=== PATIENT | male | born 1980 | race Caucasian/White ===

== ENCOUNTER → 2018-11-02 05:28 | Outpatient (CLI) | payer OTHER | END | disposition home or self-care (01) | LOC: D.OPS 05:28 → EDSTATUS 08:00 → D.OPS 08:00 | PROVIDERS: ATTEND Surgery | DX: Z87.19 Personal history of other diseases of the digestive system (principal); Z53.9 Procedure and treatment not carried out, unspecified reason; Z01.812 Encounter for preprocedural laboratory examination ==

== ENCOUNTER 2018-11-23 07:33 | Day surgery (SDC) | payer OTHER ==
[~2018-11-23] VITALS: Ht 175.3 cm; Wt 76.8 kg
[2018-11-23] MEDS ORDERED: ASACOL HD800 MG PO (08:08)
[2018-11-23 08:17] VITALS: BP 127/77; Ht 175.3 cm; Wt 76.8 kg
[2018-11-23 08:46] LABS: BASOPHILS 0.4 % (0-2); EOSINOPHILS 5.5 % (0-7); HEMATOCRIT 43.2 % (42.0-54.0); HEMOGLOBIN 15.1 g/dL (13.5-17.5); IMMATURE GRANULOCYTES 0.3 % (0-5); LYMPHOCYTES 27.6 % (15-50); MCH 31.1 pg (26.0-34.0); MCV 89.1 fL (80.0-100.0); MEAN PLATELET VOLUME 12.3 fL (7.4-10.4); MONOCYTES 8.9 % (2-11); NEUTROPHILS 57.3 % (40-80); PLATELET COUNT 148 10x3/uL (130-400); RBC 4.85 10x6/uL (4.20-6.10); RDW 12.7 % (11.5-14.5); WBC 7.1 10x3/uL (4.8-10.8)
[2018-11-23 09:01] LABS: CALC OSMOLALITY 280 mosm/kg (275-300); CALCIUM 9.2 mg/dL (8.5-10.1); CARBON DIOXIDE 28.2 mmol/L (21.0-32.0); CHLORIDE - SERUM 106 mmol/L (98-107); GLUCOSE 93 mg/dL (74-106); POTASSIUM - SERUM 4.1 mmol/L (3.5-5.1); SODIUM 141 mmol/L (136-145); UREA NITROGEN 12 mg/dL (7-18); eGFR NON AFRICAN AMERICAN 88 mL/min (90-120)
--- NOTE | 2018-11-24 18:45 | OP ---
PATIENT NAME: OANH GONZALEZ MEDICAL RECORD: [id number] :76 LOCATION:D[facility] ADMISSION DATE: SURGEON: CATALINA HAYES MD DATE OF OPERATION: 11/23/2018 PREOPERATIVE DIAGNOSES: Known Crohn disease with suprapubic and left lower quadrant abdominal pain. POSTOPERATIVE DIAGNOSES: Known Crohn disease with suprapubic and left lower quadrant abdominal pain with normal-appearing ilium, minimal proctitis that was a little worse in the perianal area. PROCEDURES: 1. Total colonoscopy to cecum. 2. Random colon and rectal biopsies. 3. Ileoscopy with biopsy. SURGEON: Catalina Hayes MD DRY CURER: None. BLOOD LOSS: Minimal. ANESTHESIA: IV sedation. COMPLICATIONS: None. The risks, possible complications and alternatives to the procedure were explained to the patient. He elects to proceed. ENDOSCOPIC COURSE: The patient was conveyed to endoscopy suite electively on 11/23/2018. IV sedation was induced by the anesthesia staff. The anesthesia staff was present due to medication tolerance. The patient was placed in the [place] position. A digital rectal examination was performed. The prostate was of normal size and normal contour and symmetric. A colonoscope was inserted through the anus. It was easily advanced to the cecum. The prep was excellent. I intubated the ileum. I was able to travel about a foot up the ileum. I noted no evidence of Meckel diverticulum. No evidence of any ileitis. The ileum appeared completely normal. I then slowly withdrew the endoscope. I irrigated and aspirated extensively. I dragged the folds. A combination of normal imaging and narrow band imaging were utilized. Random colon and rectal biopsies were obtained. He had really very minimal proctitis in the upper rectum. There was a skip area of normal rectum and in the perianal area in the very distal rectum, he had some punctate areas of proctitis. I think that he is on a good medication regimen. His Crohn's appears to be well controlled at least endoscopically. I frankly would not change a thing right now. The amount of pain that he is having is out of proportion to the degree of proctitis that I noted and he had no evidence of colitis or ileitis. TRANSINT:[id number] Voice Confirmation ID: [id number] DOCUMENT ID: [id number] CC: Dr. Juan Wing, not located OPERATIVE REPORT [id number] GONZALEZ,OANH CATALINA HAYES MD at 1845 CC: BRIAN LINCOLN MD, CHANDLER NESLON MD and ROSALINA GODINEZ [id number] DICTATION DATE: 11/23/18 1311 SHOE REPAIR COBBLER: 11/23/18 1441 [facility] 11/23/18 [place] [id number] [place] [id number]
--- NOTE | 2018-11-24 18:58 | HP ---
PATIENT: OANH GONZALEZ MEDICAL RECORD: [id number] ACCOUNT: [id number] LOCATION:[facility] : 76 ADMISSION DATE: 11/23/18 PCP: No PCP HISTORY AND PHYSICAL EXAMINATION CHIEF COMPLAINT: Inflammatory bowel disease. HISTORY OF PRESENT ILLNESS: The patient is going to be done here in the hospital because he was having angina just prior to his [facility] at the [facility], which was canceled. The chest pain was likely due to some meth use. He does have a history of Crohn's disease. He has been having suprapubic pain as well as left lower quadrant pain. SOCIAL HISTORY: He smoked 2 packs a day for 20 years. PAST MEDICAL AND SURGICAL HISTORY: Knee surgery, gastroesophageal reflux, asthma. HOME MEDICINES: Asacol. ALLERGIES: PENICILLIN. PHYSICAL EXAMINATION: GENERAL: The patient does not appear acutely ill. He does appear chronically ill. VITAL SIGNS: Reviewed. EARS: External ears appear normal. EYES: Extraocular movements are intact. NECK: Trachea is midline. CHEST: No intercostal retractions. PULMONARY: Nonlabored, no stridor. IMPRESSION: Crohn's disease with abdominal pain. PLAN: Colonoscopy with biopsies. TRANSINT:[id number] Voice Confirmation ID: [id number] DOCUMENT ID: [id number] CC: Dr. Juan Wing, not located CATALINA HAYES MD at 0050 CC: BRIAN LINCOLN MD, CHANDLER NELSON MD and ROSALINA GODINEZ [id number] DICTATION DATE: 11/23/18 1221 MANUFACTURER'S SERVICE REPRESENTATIVE: 11/23/18 1232 [facility] [place] 11/23/18 [place] [id number] [place] [id number]
== END 2018-11-23 13:52 ==
LOC: D.OPS 07:33
PROVIDERS: Anesthesiology; ATTEND Surgery
DX: K50.90 Crohn's disease, unspecified, without complications (principal); K62.89 Other specified diseases of anus and rectum; Z01.812 Encounter for preprocedural laboratory examination